=== PATIENT | female | born 2000 | race Two or more races ===

== ENCOUNTER 2021-04-10 19:11 | Emergency (ER) | payer OTHER ==
[~2021-04-10] VITALS: Ht 147.3 cm; Wt 36.3 kg
[2021-04-10] MEDS ORDERED: MEDROLPACK PO (23:19)
[2021-04-10] MEDS ORDERED: KETO10TA2 PO (23:19)
== END 2021-04-10 23:43 | disposition home or self-care (01) ==
LOC: EMR PED 19:11 → ER 19:11
DX: M79.662 Pain in left lower leg (principal); M79.661 Pain in right lower leg